=== PATIENT | male | born 2000 | race African-American/Black ===

== ENCOUNTER 2023-10-07 10:17 | Emergency (ER) | payer BC, OTHER ==
[2023-10-07] MEDS ORDERED: HYDROCODONE/APAP 5/325 MG TAB ONE ×2 (10:29→10:31)
[2023-10-07] MEDS ORDERED: IBUPROFEN 400 MG TAB ONE (10:29)
--- NOTE | 2023-10-07 11:08 | RAD REPORT ---
EXAM DESCRIPTION: RAD - Wrist Left 3 View - 10/07/2023 10:57 am CLINICAL HISTORY: Left wrist pain status post injury FINDINGS: No fracture or dislocation is seen. Small calcific/ bony density adjacent to the distal [place] [employer] appears chronic If the patient continues to have symptoms to suggest an occult fracture then a followup plain film se yair in 7 days would be recommended
--- NOTE | 2023-10-07 11:09 | RAD REPORT ---
EXAM DESCRIPTION: RAD - Femur Right - 10/07/2023 10:56 am CLINICAL HISTORY: Leg pain FINDINGS: No fracture is seen.
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
[2023-10-07 11:40] VITALS: BP 133/81; TEMP 98.3; O2SAT 100
== END 2023-10-07 11:27 | disposition home or self-care (01) ==
LOC: ER 10:17
DX: S63.592A Other specified sprain of left wrist, initial encounter (principal); S70.11XA Contusion of right thigh, initial encounter; W17.89XA Other fall from one level to another, initial encounter
CPT/HCPCS: 99284